=== PATIENT | female | born 1985 | race Caucasian/White ===

== ENCOUNTER 2022-03-27 23:36 | Emergency (ER) | payer MEDICAID, OTHER ==
[2022-03-27] MEDS ORDERED: ROCURONIUM 10 MG/ML 5 ML SYRINGE IV ONE (23:40)
[2022-03-27] MEDS ORDERED: ETOMIDATE IV SOLN 20 MG/10 ML VIAL IV ONE (23:40)
[2022-03-28 00:08] LABS: BASOPHILS # (AUTO) 0.1 10^3/uL (0.0-0.1); BASOPHILS % (AUTO) 1 % (0-10); EOSINOPHILS # (AUTO) 0.2 10^3/uL (0.0-0.3); EOSINOPHILS % (AUTO) 2 % (0-10); HEMATOCRIT 40 % (35-52); LYMPHOCYTES # (AUTO) 6.9 10^3/uL (1.0-4.0); LYMPHOCYTES % (AUTO) 81 % (12-44); MEAN CORPUSCULAR HEMOGLOBIN 33 pg (25-34); MEAN CORPUSCULAR HGB CONC 33 g/dL (32-36); MEAN CORPUSCULAR VOLUME 101 fL (80-99); MEAN PLATELET VOLUME 10.3 fL (9.0-12.2); MONOCYTES # (AUTO) 0.3 10^3/uL (0.0-1.0); MONOCYTES % (AUTO) 4 % (0-12); NEUTROPHILS # (AUTO) 0.9 10^3/uL (1.8-7.8); NEUTROPHILS % (AUTO) 10 % (42-75); PLATELET COUNT 196 10^3/uL (130-400); WHITE BLOOD COUNT 8.5 10^3/uL (4.3-11.0)
--- NOTE | 2022-03-28 00:24 | ED CPR ---
HPI-CPR General Chief Complaint: Code Blue Stated Complaint: RESP DISTRESS Source of Information: EMS, Family History of Present Illness Date Seen by Provider: Mar 28, 2022 Time Seen by Provider: 23:50 Initial Comments Patient arrives via EMS after CODE JEAN CARLOS. EMS states per her twin sister who was at the house that she was well prior to tonight's events. She suddenly complained of being short of breath and was "gasping for air." She then collapsed to the floor. On EMS arrival he states she was in ventricular fibrillation, pulseless and unresponsive. She had agonal respirations upon their arrival. Her sister arrives and tells me she complained of some pain in the leg last week but otherwise is healthy. He on arrival her blood sugar is 416. Paramedics got ROSC in route. They did give her 3 rounds of epinephrine, 2 doses of amiodarone, 2 mg of Narcan and defibrillated her 2 times. He was on the second defibrillation that she achieved ROSC Allergies and Home Medications Allergies Coded Allergies: sulfamethoxazole (Verified Allergy, Unknown, 05/25/15) trimethoprim (Verified Allergy, Unknown, 05/25/15) Patient Home Medication List Home Medication List Reviewed: Yes Review of Systems Review of Systems Constitutional: other (Unable to obtain review of systems this patient intubated) Past Srcxlbg-[id number]-Plmayw Hx Patient Social History Use of E-Cig and/or Vaping dev: Unable to obtain Substance use?: Unable to obtain Alcohol Use?: Unable to obtain Pt feels they are or have been: Unable to obtain Seasonal Allergies Seasonal Allergies: No Past Medical History Appendectomy, Gallbladder Reproductive Disorders: No Family Medical History Reviewed Nursing Family Hx Diabetes Physical Exam Vital Signs Vital Signs - First Documented 03/27/22 03/27/22 23:40 23:45 Pulse 115 Resp 38 B/P (MAP) 150/41 (77) Pulse Ox 82 O2 Delivery Ambu Bag FiO2 100 Capillary Refill : Height, Weight, BMI Height: 5'7" Weight: 151lbs. oz. 68.185920fp; BMI Method:Stated General Appearance: Other (Unresponsive, ventilated via [id number] with a Combitube) HEENT: PERRL/EOMI Cardiovascular: Tachycardia Gastrointestinal: Normal Bowel Sounds, Soft Extremity: Normal Inspection, No Pedal Edema Neurologic/Psychiatric: Other (No purposeful movements) Skin: Mottled Procedures/Interventions Lumen: triple Position: femoral (R) Complications: none Post Position: sutured, good blood return Intubation Method: orotracheal Medications: Etomidate, Rocuronium Positive End Tide CO2: Yes Breath Sounds after Intubation: bilateral-equal Intubation Complications: no complications Post Intubation Xray: Yes Progress/Results/Core Measures Results/Orders Lab Results Laboratory Tests Test 03/27/22 23:43 03/27/22 23:44 03/28/22 00:37 03/28/22 00:45 Range/Units White Blood Count 8.5 4.3-11.0 10^3/uL Red Blood Count 3.92 3.80-5.11 10^6/uL Hemoglobin 13.0 11.5-16.0 g/dL Hematocrit 40 35-52 % Mean Corpuscular Volume 101 H 80-99 fL Mean Corpuscular Hemoglobin 33 25-34 pg Mean Corpuscular Hemoglobin Concent 33 32-36 g/dL Red Cell Distribution Width 12.3 10.0-14.5 % Platelet Count 196 130-400 10^3/uL Mean Platelet Volume 10.3 9.0-12.2 fL Immature Granulocyte % (Auto) 3 % Neutrophils (%) (Auto) 10 L 42-75 % Lymphocytes (%) (Auto) 81 H 12-44 % Monocytes (%) (Auto) 4 0-12 % Eosinophils (%) (Auto) 2 0-10 % Basophils (%) (Auto) 1 0-10 % Neutrophils # (Auto) 0.9 L 1.8-7.8 10^3/uL Lymphocytes # (Auto) 6.9 H 1.0-4.0 10^3/uL Monocytes # (Auto) 0.3 0.0-1.0 10^3/uL Eosinophils # (Auto) 0.2 0.0-0.3 10^3/uL Basophils # (Auto) 0.1 0.0-0.1 10^3/uL Immature Granulocyte # (Auto) 0.2 H 0.0-0.1 10^3/uL Neutrophils % (Manual) 11 % Lymphocytes % (Manual) 63 % Monocytes % (Manual) 1 % Basophils % (Manual) 1 % Metamyelocytes % 1 % Band Neutrophils 1 % Atypical Lymphocytes 1 % Reactive Lymphocytes 21 % Platelet Estimate NORMAL Macrocytosis SLIGHT Blood Morphology Comment NORMAL Sodium Level 135 135-145 MMOL/L Potassium Level 3.3 L 3.6-5.0 MMOL/L Chloride Level 96 L 98-107 MMOL/L Carbon Dioxide Level 11 L 21-32 MMOL/L Anion Gap 28 H 5-14 MMOL/L Blood Urea Nitrogen 13 7-18 MG/DL Creatinine 1.17 0.60-1.30 MG/DL Estimat Glomerular Filtration Rate 62 BUN/Creatinine Ratio 11 Glucose Level 407 *H 70-105 MG/DL Calcium Level 8.7 8.5-10.1 MG/DL Corrected Calcium 9.1 8.5-10.1 MG/DL Total Bilirubin < 0.2 0.1-1.0 MG/DL Aspartate Amino Transf (AST/SGOT) 145 H 5-34 U/L Alanine Aminotransferase (ALT/SGPT) 100 H 0-55 U/L Alkaline Phosphatase 81 40-136 U/L Troponin I < 0.30 <0.30 NG/ML Total Protein 5.6 L 6.4-8.2 GM/DL Albumin 3.5 3.2-4.5 GM/DL Serum Test, Qualitative NEGATIVE NEGATIVE Glucometer 416 *H 70-110 MG/DL Influenza Type A (RT-PCR) Not Detected Not Detecte Influenza Type B (RT-PCR) Not Detected Not Detecte SARS-CoV-2 RNA (RT-PCR) Not Detected Not Detecte Urine Color YELLOW Urine Clarity CLOUDY Urine pH 7.0 5-9 Urine Specific [place] 1.025 H 1.016-1.022 Urine Protein 3+ H NEGATIVE Urine Glucose (UA) 2+ H NEGATIVE Urine Ketones NEGATIVE NEGATIVE Urine Nitrite NEGATIVE NEGATIVE Urine Bilirubin NEGATIVE NEGATIVE Urine Urobilinogen 0.2 < = 1.0 MG/DL Urine Leukocyte Esterase NEGATIVE NEGATIVE Urine RBC (Auto) 2+ H NEGATIVE Urine RBC 10-25 H /HPF Urine WBC 2-5 /HPF Urine Squamous Epithelial Cells 0-2 /HPF Urine Crystals PRESENT H /LPF Urine Amorphous Sediment FEW DAVID PHOSPHATE H /LPF Urine Bacteria NEGATIVE /HPF Urine Casts NONE /LPF Urine Mucus NEGATIVE /LPF Urine Culture Indicated NO Urine Opiates Screen NEGATIVE NEGATIVE Urine Oxycodone Screen NEGATIVE NEGATIVE Urine Methadone Screen NEGATIVE NEGATIVE Urine Propoxyphene Screen NEGATIVE NEGATIVE Urine Barbiturates Screen NEGATIVE NEGATIVE Ur Tricyclic Antidepressants Screen NEGATIVE NEGATIVE Urine Phencyclidine Screen NEGATIVE NEGATIVE Urine Amphetamines Screen NEGATIVE NEGATIVE Urine Methamphetamines Screen NEGATIVE NEGATIVE Urine Benzodiazepines Screen NEGATIVE NEGATIVE Urine Cocaine Screen NEGATIVE NEGATIVE Urine Cannabinoids Screen POSITIVE H NEGATIVE My Orders Orders - KWASIKRISSY L DO Cbc With Automated Diff (03/27/22 23:59) Comprehensive Metabolic Panel (03/27/22 23:59) Troponin I Fs (03/27/22 23:59) Drug Screen Stat (Urine) (03/28/22 00:00) Ua Culture If Indicated (03/28/22 00:00) Manual Differential (03/27/22 23:43) Ct Angio Chest W (03/28/22 00:19) Fentanyl Drip Pre-Mix (Fentanyl Drip Pre (03/28/22 00:30) Fentanyl Inj (Sublimaze Injection) (03/28/22 00:36) Piperacillin Sodium/Tazobactam (Zosyn Vi (03/28/22 00:45) Vancomycin Injection (Vancomycin Injecti (03/28/22 00:45) Covid 19 Inhouse Test (03/28/22 00:37) Influenza A And B By Pcr (03/28/22 00:37) Hcg,Qualitative Serum (03/28/22 00:38) Iohexol Injection (Omnipaque 350 Mg/Ml 1 (03/28/22 00:30) Received Contrast (Hold Metformin- Contr (03/28/22 00:30) Ns (Ivpb) (Sodium Chloride 0.9% Ivpb Bag (03/28/22 00:30) Fentanyl Inj (Sublimaze Injection) (03/28/22 00:45) Propofol Drip (Icu) (Diprivan Drip (Icu) (03/28/22 01:00) Sedation Communication Q48H (03/28/22 00:47) Ekg Tracing (03/27/22 23:59) Etomidate Injection (Amidate Injection) (03/27/22 23:40) Rocuronium 5 Ml Syringe (Rocuronium 5 Ml (03/27/22 23:40) Medications Given in ED Vital Signs/I&O 03/27/22 03/27/22 03/28/22 23:40 23:45 01:17 Pulse 115 110 74 Resp 38 15 B/P (MAP) 150/41 (77) 96/67 Pulse Ox 82 78 81 O2 Delivery Ambu Bag Mechanical Ventilator FiO2 100 EKG : Comment Sinus tachycardia with rate of 111 bpm. Normal intervals. Left axis deviation. No ST or T wave abnormalities. No ectopy. Diagnostic Imaging Diagonstic Imaging: CT Plain Films/CT/US/NM/MRI: chest Comments 1. There is an endotracheal tube in place with the tip at the [place], partially extending to the right mainstem bronchus. (ET Tube pulled back 2cm after CT completed.) #2 pulmonary arterial tree is well opacified with contrast no PE identified. #3 thoracic aorta is nondilated, no aneurysm or dissection #4 heart is mildly enlarged no pericardial effusion #5 moderate to large amount of consolidation involving dependent portion of the lungs bilaterally suggesting atelectasis. Mild central edema is also present. No pneumothorax or pleural effusion. Critical Care Note Critical Care Start Time: 23:55 Stop Time: 01:40 Total Time (minutes) 105 minutes excluding procedures Departure Communication (Admissions) I spoke with Shilpa Allen, midlevel provider at [facility]. She request transfer to facility with possible ECMO due to problems with oxygenation. Pending return call at this time. The patient is in the CT scanner 1235: Spoke to adilson Jiang at [facility]. She accepts the patient in transfer on behalf of Dr. Hernandez. We are checking on air transport at this time. CTA returns. ET tube slightly deep, pulled back 2 cm. No PE. Possible pneumonia. Started on antibiotics. She is overbreathing the vent at this time. We will start propofol. 0130: Flight crew here. Patient oxygenating somewhat better, O2 90% on max support. Patient transferred in critical condition stabilized within capability of this hospital. Impression Primary Impression: Cardiac arrest with ventricular fibrillation Additional Impressions: Respiratory failure Qualified Codes: J96.01 - Acute respiratory failure with hypoxia; J96.02 - Acute respiratory failure with hypercapnia Signs of return of spontaneous circulation Lung infiltrate on CT Disposition: 02 XFER SHT-TRM HOSP Condition: Critical Transfer Transfer Reason: Exceeds level of care Time Spoke to Accepting Phy: 00:40 Method of Transfer: Air Departure-Patient Inst. Referrals: NO,LOCAL PHYSICIAN (PCP/Family) Primary Care Physician KRISSY VILLALPANDO DO Mar 28, 2022 00:23
[2022-03-28 00:29] LABS: ATYPICAL LYMPHOCYTES 1 %; BAND NEUTROPHILS 1 %; BASOPHILS % (MANUAL) 1 %; LYMPHOCYTES % (MANUAL) 63 %; METAMYELOCYTES % 1 %; MONOCYTES % (MANUAL) 1 %; NEUTROPHILS % (MANUAL) 11 %; REACTIVE LYMPHOCYTES 21 %
[2022-03-28 00:30] LABS: PLATELET ESTIMATE NORMAL; RBC MORPH NORMAL
[2022-03-28] MEDS ORDERED: fentaNYL DRIP PRE-MIX 250 ML IV SCH (00:30)
[2022-03-28] MEDS ORDERED: NS 100 ML (IVPB) BAG IV ONE (00:30)
[2022-03-28] MEDS ORDERED: IOHEXOL 350 MG/ML 100 ML (OMNIPAQUE 350) VIAL IV ONE (00:30)
[2022-03-28] MEDS ORDERED: HOLD METFORMIN - RECEIVED CONTRAST 20 ML VIAL IV SCH (00:30)
[2022-03-28] MEDS ORDERED: fentaNYL INJ 100 MCG/2 ML AMP ONE (00:36)
[2022-03-28 00:44] LABS: CHLORIDE 96 MMOL/L (98-107); POTASSIUM 3.3 MMOL/L (3.6-5.0); SODIUM 135 MMOL/L (135-145)
[2022-03-28 00:45] LABS: ALANINE AMINOTRANSFERASE 100 U/L (0-55); ALKALINE PHOSPHATASE 81 U/L (40-136); BUN/CREATININE RATIO 11; CALCIUM 8.7 MG/DL (8.5-10.1); CARBON DIOXIDE 11 MMOL/L (21-32); CREATININE SERUM 1.17 MG/DL (0.60-1.30); GFR ESTIMATED 62
[2022-03-28] MEDS ORDERED: PIPERACILLIN SODIUM/TAZOBACTAM 4.5 GM in NS (IVPB) 100 ML IV ONE (00:45)
[2022-03-28] MEDS ORDERED: VANCOMYCIN INJECTION 1,000 MG in NS (IVPB) 250 ML IV ONE (00:45)
[2022-03-28] MEDS ORDERED: fentaNYL INJ 100 MCG/2 ML AMP IVP ONE (00:45)
[2022-03-28 00:46] LABS: ALBUMIN 3.5 GM/DL (3.2-4.5); BILIRUBIN,TOTAL < 0.2 MG/DL (0.1-1.0); TOTAL PROTEIN 5.6 GM/DL (6.4-8.2)
[2022-03-28 00:48] LABS: GLUCOSE 407 MG/DL (70-105)
[2022-03-28] MEDS ORDERED: PROPOFOL DRIP (ICU) 100 ML IV SCH (01:00)
[2022-03-28 01:06] LABS: BILIRUBIN,URINE NEGATIVE (NEGATIVE); CLARITY,URINE CLOUDY; COLOR,URINE YELLOW; GLUCOSE, URINE (UA) 2+ (NEGATIVE); KETONES,URINE NEGATIVE (NEGATIVE); LEUKOCYTE ESTERASE ,URINE NEGATIVE (NEGATIVE); NITRITE,URINE NEGATIVE (NEGATIVE); PROTEIN,URINE 3+ (NEGATIVE)
[2022-03-28 01:16] LABS: BACTERIA,URINE NEGATIVE /HPF; SQUAMOUS EPITHELIAL CELL,UR 0-2 /HPF
[2022-03-28 01:17] VITALS: BP 96/67
[2022-03-28 01:17] LABS: AMORPHOUS SEDIMENT,UR FEW AMOR PHOSPHATE /LPF
[2022-03-28 01:18] LABS: AMPHETAMINE SCREEN, URINE NEGATIVE (NEGATIVE); BARBITURATE SCREEN URINE NEGATIVE (NEGATIVE); BENZODIAZEPINES SCREEN URINE NEGATIVE (NEGATIVE); CANNABINOID SCREEN, URINE POSITIVE (NEGATIVE); COCAINE SCREEN URINE NEGATIVE (NEGATIVE); METHADONE STAT NEGATIVE (NEGATIVE); OPIATE SCREEN URINE NEGATIVE (NEGATIVE); OXYCODONE STAT NEGATIVE (NEGATIVE); PROPOXYPHENE STAT NEGATIVE (NEGATIVE); TRICYCLIC ANTIDEPRESSANTS SCRE NEGATIVE (NEGATIVE)
--- NOTE | 2022-03-28 06:59 | Diagnostic Imaging Report ---
PROCEDURE: CT angiography of the chest with contrast. TECHNIQUE: Multiple contiguous axial images were obtained through the chest after uneventful bolus administration of intravenous contrast. 3D reconstructed CTA MIP acquisitions were also performed. Auto Exposure Controls were utilized during the CT exam to meet ALARA standards for radiation dose reduction. INDICATION: Hypoxia. Respiratory failure. Comparison with chest x-ray 05/24/2015. FINDINGS: ET tube present as well as NG tube in good position. There is dense consolidation in the upper lobes as well as large portion of the lower lobes bilaterally. Air bronchograms are present. No evidence of pneumothorax or pleural effusion. Good opacification of the aorta and pulmonary arteries. No evidence of aortic aneurysm or dissection. There are no filling defects that would indicate pulmonary emboli. No mediastinal or hilar adenopathy of pathologic size. IMPRESSION: 1. No evidence of pulmonary emboli. 2. Dense consolidated infiltrates in the upper and lower lobes. Dictated by: Dictated on workstation # [id number]
== END 2022-03-28 02:00 | disposition short-term general hospital (02) ==
LOC: EDUNIT# 23:36 → ER FS 23:39
DX: I46.9 Cardiac arrest, cause unspecified (principal); I49.01 Ventricular fibrillation; J96.90 Respiratory failure, unspecified, unspecified whether with hypoxia or hypercapnia; R91.8 Other nonspecific abnormal finding of lung field; Z88.2 Allergy status to sulfonamides; Z20.822 Contact with and (suspected) exposure to COVID-19; Z28.310 Unvaccinated for COVID-19
CPT/HCPCS: 31500; 36415; 51702; 71275; 80053; 80306; 81000; 82947; 84484; 84703; 85007; 85027; 87636; 93005; 94002; 94640; 96365; 96367; 96368; 96375; Q9967